=== PATIENT | male | born 1945 | race Caucasian/White ===

== ENCOUNTER 2018-04-14 13:37 | Emergency (ER) | payer OTHER, MEDICARE ==
[~2018-04-14] VITALS: Ht 185.4 cm; Wt 106.6 kg
[~2018-04-14 13:37] MED LIST: AUGMENTIN 875-1 EACH PO; AVODART0.5 MG PO; HYDROCODONE-AP1 EAC6 PO; OXYBUTYNIN 5 MG5 M1 PO; SERTRALINE HCL50 MG PO; TAMSULOSIN HCL0.4 M1 PO; XARELTO20 MG PO; ZANTAC 150MG T150 M1 PO
[2018-04-14 13:40] VITALS: BP 113/72
== END 2018-04-14 13:59 | disposition home or self-care (01) ==
LOC: ER 13:37
DX: S51.812D Laceration without foreign body of left forearm, subsequent encounter (principal); S01.512D Laceration without foreign body of oral cavity, subsequent encounter; W54.0XXD Bitten by dog, subsequent encounter